=== PATIENT | male | born 1965 | race Caucasian/White ===

== ENCOUNTER 2017-03-21 03:38 | Emergency (ER) | payer MEDICAID ==
[2017-03-21] MEDS: IBUPROFEN 600 MG TAB PO (07:33)
== END 2017-03-21 08:40 | disposition home or self-care (01) ==
LOC: FTE 03:38
DX: S46.912A Strain of unspecified muscle, fascia and tendon at shoulder and upper arm level, left arm, initial encounter (principal); F17.210 Nicotine dependence, cigarettes, uncomplicated; W18.39XA Other fall on same level, initial encounter; Y92.9 Unspecified place or not applicable
CPT/HCPCS: 73030; 73080-LT; 73110-LT; 99283-25